=== PATIENT | male | born 1955 | race Caucasian/White ===

== ENCOUNTER 2019-02-24 10:20 | Emergency (ER) | payer BC ==
[~2019-02-24] VITALS: Ht 193 cm; Wt 140.9 kg
[~2019-02-24 10:20] MED LIST: CLIN-96 PO
[2019-02-24 10:40] VITALS: BP 142/85
== END 2019-02-24 12:50 | disposition home or self-care (01) ==
LOC: ER 10:20
DX: S83.8X1A Sprain of other specified parts of right knee, initial encounter (principal); F10.99 Alcohol use, unspecified with unspecified alcohol-induced disorder; Z56.0 Unemployment, unspecified; Z79.899 Other long term (current) drug therapy; X58.XXXA Exposure to other specified factors, initial encounter; Y93.89 Activity, other specified; Y92.89 Other specified places as the place of occurrence of the external cause; Y99.8 Other external cause status; Y90.9 Presence of alcohol in blood, level not specified
CPT/HCPCS: 29505; 73564; 99283

== ENCOUNTER 2019-03-02 11:23 | Emergency (ER) | payer BC ==
[~2019-03-02] VITALS: Ht 193 cm; Wt 141.0 kg
[2019-03-02 11:48] VITALS: BP 157/111
[2019-03-02] MEDS ORDERED: ketorolac trometh inj. 60 MG/2 ML VIAL IM ONE (13:00)
[2019-03-02] MEDS ORDERED: HYDR-4353 PO (13:01)
== END 2019-03-02 13:35 | disposition home or self-care (01) ==
LOC: ER 11:23
DX: M25.461 Effusion, right knee (principal); F10.99 Alcohol use, unspecified with unspecified alcohol-induced disorder; Z56.0 Unemployment, unspecified; Z79.899 Other long term (current) drug therapy; Y90.9 Presence of alcohol in blood, level not specified
CPT/HCPCS: 96372; 99283; J1885

== ENCOUNTER 2021-04-09 01:53 | Emergency (ER) | payer BC ==
[~2021-04-09] VITALS: Ht 193 cm; Wt 122.7 kg
[~2021-04-09 01:53] MED LIST changes: -CLIN-96 PO; +CLIN-97 PO
[2021-04-09 02:47] VITALS: BP 106/71
[2021-04-09 02:56] LABS: CLARITY,URINE TURBID (Clear); COLOR,URINE RED (Yellow); UA COLLECTION TYPE CLN CATCH MIDSTREAM
[2021-04-09] MEDS ORDERED: FOSFOMYCIN TROMETHAMINE 3 GM PACKET PO ONE (03:45)
[2021-04-09 04:12] LABS: RBC,URINE TNTC /HPF (0-2); WBC,URINE 50-100 /HPF (0-4)
[2021-04-09 04:13] LABS: BACTERIA,URINE 2+ /HPF (Neg); MUCUS STRANDS MODERATE /LPF (Neg); SQUAMOUS EPITHELIAL CELL,UR NONE SEEN /LPF (FEW)
== END 2021-04-09 04:29 | disposition home or self-care (01) ==
LOC: ER 01:53
DX: N39.0 Urinary tract infection, site not specified (principal); R31.9 Hematuria, unspecified
CPT/HCPCS: 81001; 87077; 87088; 87186; 99283